=== PATIENT | female | born 1960 | race Caucasian/White ===

== ENCOUNTER 2017-02-28 17:11 | Emergency (ER) | payer OTHER ==
--- NOTE | ~2017-02-28 | CR141 ---
[facility] A Service of [facility] & [facility] RADIOLOGY TEXT RESULTS PATIENT: NAVEED ALCAZAR LOCATION: SED : 58 UNIT #: [id number] AGE: [address]: MARIA FERNANDA CORNEJO SEX: F ORDER DR: [id number] [address] [address] [id number] E MR#: [id number] Acc #: [id number] NAME: NAVEED ALCAZAR : 1960 SEX: F STUDY DATE/TIME: 02/28/2017 18:18 UNIT: SED ROOM: STUDY DESCRIPTION: CR Hand Min 3 Views Lt Attending Physician: Maria Fernanda Cornejo A.P.R.N. Ordering Physician: Maria Fernanda Cornejo A.P.R.N. Primary Care Physician: Primary Care Physician No MEDICAL IMAGING REPORT This report is preliminary unless electronic signature is present. EXAM Left hand series dated 02/28/2017. COMPARISON Left wrist series dated 02/28/2017. HISTORY Patient fell down stairs on . Left hand and left wrist pain and swelling. FINDINGS Three views of the left hand were obtained. There is an oblique nondisplaced fracture involving the proximal diaphysis of the proximal phalanx of the fifth digit. No dislocation. Minimal adjacent soft tissue swelling cannot be excluded. There is no radiopaque foreign body. Remaining digits do not demonstrate any acute injury. Dictated by... Brenton Vargas M.D. THIS IS AN ELECTRONICALLY VERIFIED REPORT Brenton Vargas M.D. at 03/01/2017 8:43 PM CPR/psc TD: 03/01/2017 04:19 JOB #: [id number] MEDICAL IMAGING REPORT Page 1 of 1
--- NOTE | ~2017-02-28 | CR281 ---
[facility] A Service of [facility] & [facility] RADIOLOGY TEXT RESULTS PATIENT: NAVEED ALCAZAR LOCATION: SED : 58 UNIT #: [id number] AGE: [address]: MARIA FERNANDA CORNEJO SEX: F ORDER DR: [id number] [address] [address] [id number] E MR#: [id number] Acc #: [id number] NAME: NAVEED ALCAZAR : 1960 SEX: F STUDY DATE/TIME: 02/28/2017 18:18 UNIT: SED ROOM: STUDY DESCRIPTION: CR Wrist Min 3 View Lt Attending Physician: Maria Fernanda Cornejo A.P.R.N. Ordering Physician: Maria Fernanda Cornejo A.P.R.N. Primary Care Physician: Primary Care Physician No MEDICAL IMAGING REPORT This report is preliminary unless electronic signature is present. EXAM Left wrist series dated 02/28/2017. COMPARISON Left hand series dated 02/28/2017. HISTORY Patient fell down the stairs on . Pain and swelling of the left hand and wrist since then. FINDINGS Three views of the left wrist were obtained. No acute displaced fracture or dislocation is seen. Distal radioulnar and radiocarpal joints are intact. Visualized carpals and metacarpals do not demonstrate any obvious abnormality. Refer to the left hand series. Dictated by... Brenton Vargas M.D. THIS IS AN ELECTRONICALLY VERIFIED REPORT Brenton Vargas M.D. at 03/01/2017 8:43 PM CPR/psc TD: 03/01/2017 04:16 JOB #: [id number] MEDICAL IMAGING REPORT Page 1 of 1
[~2017-02-28 17:11] MED LIST: AUGMENTIN875 MG PO; CIPRO PO; COMPAZINE10 MG PR; DICLOFENAC PO; FLEXERIL PO; FLEXERIL10 MG PO; FOLIC ACID PO; HYDROCODON-ACE1 EAC9 PO; KEFLEX PO; LACTULOSE PO; LACTULOSE10 G/15 M1 PO; LACTULOSE10 G/15 ML; LEVAQUIN PO; LIBRIUM25 MG PO; LOVENOX40 MG/0.4 INJ; MEDROL PO; MELOXICAM15 MG PO; MOBIC15 MG PO; NORCO 5/325 TAB1 TAB PO; ONE DAILY1 TA1 PO; PEGASYS PO; PEGASYS180 MCG/M1 SQ; PHENERGAN25 MG PO; ROBAXIN 750750 MG PO; THIAMINE PO; VICODIN 5/500 T1 TAB PO; ZANAFLEX2 M1 PO; ZANAFLEX6 MG
[2017-02-28] MEDS ORDERED: NO MEDICATIONS (17:16)
== END 2017-02-28 19:30 | disposition home or self-care (01) ==
LOC: SED 17:11
DX: S62.647A Nondisplaced fracture of proximal phalanx of left little finger, initial encounter for closed fracture (principal); S60.812A Abrasion of left wrist, initial encounter; W10.9XXA Fall (on) (from) unspecified stairs and steps, initial encounter; Y92.009 Unspecified place in unspecified non-institutional (private) residence as the place of occurrence of the external cause; Z88.8 Allergy status to other drugs, medicaments and biological substances; Z86.19 Personal history of other infectious and parasitic diseases; J45.909 Unspecified asthma, uncomplicated
CPT/HCPCS: 29130; 73110; 73130; 99283

== ENCOUNTER 2017-05-12 01:14 | Emergency (ER) | payer OTHER ==
[~2017-05-12] VITALS: Ht 170.2 cm; Wt 72.6 kg
[~2017-05-12 01:14] MED LIST changes: +NO MEDICATIONS
[2017-05-12] MEDS ORDERED: NO MEDICATIONS (01:30)
== END 2017-05-12 02:09 | disposition home or self-care (01) ==
LOC: SED 01:14
DX: M54.2 Cervicalgia (principal); G89.29 Other chronic pain; Z88.8 Allergy status to other drugs, medicaments and biological substances; Z98.890 Other specified postprocedural states
CPT/HCPCS: 99283

== ENCOUNTER 2017-05-26 15:11 | Inpatient (IN) | payer MEDICARE, OTHER ==
[~2017-05-26] VITALS: Ht 170.2 cm; Wt 75.4 kg
--- NOTE | ~2017-05-26 | US5 ---
[facility] A Service of [facility] & [facility] RADIOLOGY TEXT RESULTS PATIENT: NAVEED ALCAZAR LOCATION: C3A 314-01 : 58 UNIT #: [id number] AGE: [address]: Celeste Ellis MD SEX: F ORDER DR: [id number] [id number] [facility]. [place], [place] [address] [id number] I MR#: [id number] Acc #: [id number] NAME: NAVEED ALCAZAR : 1960 SEX: F STUDY DATE/TIME: 05/27/2017 18:05 UNIT: C3A PCU ROOM: 314 STUDY DESCRIPTION: US Abdominal Complete Attending Physician: Celeste Ellis M.D. Ordering Physician: Derrick Wynn M.D. Primary Care Physician: Primary Care Physician No MEDICAL IMAGING REPORT This report is preliminary unless electronic signature is present EXAM Complete abdominal ultrasound COMPARISON CT abdomen and pelvis, September 06, 2008. INDICATION 56-year-old female with diffuse abdominal pain for 3 months. History of hepatitis C virus and alcohol abuse. Generalized weakness. FINDINGS Left kidney is normal in length and cortical thickness. There is no left hydronephrosis. No focal left renal lesions. Spleen is normal in size. Visualized portions of the pancreas are within normal limits. IVC is patent at the level of the liver. Normal caliber of the abdominal aorta which is patent throughout. Normal common bile duct caliber at 4 mm. Right kidney is of normal size with normal cortical thickness. No right hydronephrosis or shadowing calculus. No focal right renal lesions are seen. Liver is small. There is a nodular contour of the liver consistent with cirrhosis. The urinary bladder is not seen. Color flow is noted within the portal hepatic veins. There is a small amount of perihepatic ascites. There is trace pericholecystic fluid with top normal wall thickness of the gallbladder at 3 mm. There is an echogenic focus along the wall of the gallbladder which may reflect adherent calculus or possibly a polyp measuring up to 7 mm. No focal hepatic lesions are seen. IMPRESSION 1. Suspected 7 mm polyp of the gallbladder. Consider followup gallbladder ultrasound in 6 months to ensure no interval growth. 2. Cirrhosis with trace perihepatic ascites. There is also a small amount of pericholecystic fluid favored to represent transmitted ascites. Gallbladder wall thickness may be normal and there is normal biliary caliber. Alternatively, there may be edema of the STS. [facility] A Service of [facility] & [facility] RADIOLOGY TEXT RESULTS PATIENT: NAVEED ALCAZAR LOCATION: C3A 314-01 : 58 UNIT #: [id number] AGE: [address]: Celeste Ellis MD SEX: F ORDER DR: gallbladder wall in lieu of pericholecystic fluid. Again this is a finding which can be seen in cirrhosis. If the patient is symptomatic, consider nuclear medicine hepatobiliary scan to exclude the possibility of cholecystitis. 3. No definite focal hepatic lesion is seen. Dictated by... Gigi Michelle M.D. THIS IS AN ELECTRONICALLY VERIFIED REPORT Gigi Michelle M.D. at 06/02/2017 9:36 AM Autumn TD: 05/28/2017 09:22 JOB #: [id number] MEDICAL IMAGING REPORT Page 1 of 1 COPY
--- NOTE | ~2017-05-26 | CO ---
Unit #: [id number] #: [id number] Patient: NAVEED FULTON [id number] [address] [place], [place] [address] [id number] I MR#: [id number] NAME: NAVEED FULTON ROOM: 314 Age: 56 Sex: F Admission Date: 05/26/2017 : 1960 Attending Physician: Celeste Ellis M.D. Primary Care Physician: Primary Care Physician No Consultation Date: 05/27/2017 CONSULTATION REPORT REASON FOR CONSULTATION Severe anemia. HISTORY OF PRESENTING ILLNESS Ms. Fulton is a 56-year-old female. She was admitted yesterday after found to be severely anemic by Dr. Rain during regular labs in office. She says she had a bout of hematemesis and black stools about 2 weeks ago which resolved on its own. It happened after she has been taking some ibuprofen for shoulder pain apparently. She has no history of GI bleeding in the past. She does have a history of heavy alcoholism, but says 5 years ago she quit altogether, also has hepatitis C which was treated of actively according to the patient. She denies any abdominal pain. She denies any fever or chills. She denies any diagnosis of liver cirrhosis in the past. PAST MEDICAL HISTORY Chronic neck and back pain, history of asthma, status post neck surgery, tonsillectomy, and right ankle surgery. SOCIAL HISTORY She stopped alcohol 5 years ago. Does not smoker. Denies any drug abuse. FAMILY HISTORY Negative. ALLERGIES Haloperidol. MEDICATIONS Current medications were reviewed. Has taken NSAIDs recently. REVIEW OF SYSTEMS A complete 10-point review of systems was done, which is unremarkable other than as mentioned above. PHYSICAL EXAMINATION VITAL SIGNS: Stable; temperature 97.9, pulse 96, respirations 18, blood pressure 118/63. HEENT: Pupils are equal and reactive. Sclerae are anicteric. Oral mucosa moist. NECK: No JVD. No lymphadenopathy. CHEST: Clear to auscultation bilaterally. CARDIOVASCULAR: Regular rate and rhythm. No murmurs. ABDOMEN: Soft, nontender, and nondistended. Unit #: [id number] #: [id number] Patient: NAVEED FULTON EXTREMITIES: Without clubbing, cyanosis, or edema. NEUROLOGICAL: Intact. SKIN: Warm and dry. DIAGNOSTIC STUDIES LABORATORY RESULTS: Hemoglobin on arrival was 4.7, MCV of 67. Ferritin of 6. B12 was 934. Hemoglobin now this morning is 6.6 and with an MCV of 66, and platelet count of 125. White count is normal at 5.3. ASSESSMENT AND PLAN The patient with severe microcytic anemia, Hemoccult-positive stool, history of alcoholism and hepatitis C in the past, most likely cirrhosis possible varices or gastropathy related bleeding. We will need an upper endoscopy for evaluation. If negative, colonoscopy to be followed for further evaluation of this severe microcytic anemia. I will give her transfusions to bring her hemoglobin up to above 7.5. We will continue with PPIs and also add octreotide for now. Further recommendations to follow after endoscopy evaluation as being carried out. Risks and benefits of the endoscopy were discussed, the patient is agreeable and wants to proceed. Thank you, Dr. Garza, for this interesting consult. We will follow along. Dictated by... Jimenez Ochoa/craig TD: 05/27/2017 10:59 JOB #: [id number] CONSULTATION REPORT Page 1 of 1 X Derrick Wynn MD X CONSULTATION REPORT
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
--- NOTE | ~2017-05-26 | OR ---
Unit #: [id number] #: [id number] Patient: NAVEED ALCAZAR [id number] [address] [address] [id number] I MR#: [id number] NAME: NAVEED ALCAZAR ROOM: [facility] Date of Procedure: 05/27/2017 Admission Date: 05/26/2017 Surgeon: Derrick Wynn M.D. : 1960 Attending Physician: Celeste Ellis M.D. Primary Care Physician: Primary Care Physician No OPERATIVE REPORT PROCEDURES PERFORMED Esophagogastroduodenoscopy with biopsy and esophagogastroduodenoscopy with variceal banding. INDICATIONS FOR PROCEDURE The patient presented with severe anemia, history of alcoholism, and hepatitis C, undergoing evaluation with upper endoscopy. MEDICATIONS Monitored anesthesia. POSTOPERATIVE FINDINGS 1. Grade 3 esophageal varices. Three bands were placed. 2. Multiple superficial ulceration in the gastric antral area along with chronic diffuse gastropathy, biopsies taken. 3. Mild duodenitis. PLAN Continue PPI therapy. Start on nadolol. Repeat upper endoscopy for banding in 3 months. Consider colonoscopy for further evaluation. DESCRIPTION OF PROCEDURE The patient was explained of the procedure, risks, and benefits along with risks and benefits of anesthesia. She was brought to the endoscopy room. Propofol anesthesia was given. Bite block was placed. The scope was passed down the mouth into the esophagus, stomach, duodenum, and distal duodenum. Findings as described. Biopsies taken. Banding was then carried out in the esophagus. Gently, the scope was pulled out. She tolerated it well. Dictated by... Jimenez Ochoa/craig TD: 05/27/2017 12:23 JOB #: [id number] Unit #: [id number] #: [id number] Patient: NAVEED ALCAZAR OPERATIVE REPORT Page 1 of 1 X Derrick Wynn MD X PROCEDURE OPERATIVE NOTE
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
--- NOTE | ~2017-05-26 | EKG ---
PATIENT: NAVEED ALCAZAR UNIT #: [id number] Ventricular Rate: 93 BPM Atrial Rate: 93 BPM P-R Interval: 160 ms QRS Duration: 76 ms Q-T Interval: 372 ms QTC Calculation(Bezet): 462 ms P Woodburn: 54 degrees Calculated R Woodburn: 4 degrees Calculated T Woodburn: 93 degrees Diagnosis Line: Normal sinus rhythm Diagnosis Line: Abnormal QRS-T angle, consider primary T wave Diagnosis Line: abnormality Diagnosis Line: Abnormal ECG Diagnosis Line: When compared with ECG of 13-FEB-2014 23:40, Diagnosis Line: Nonspecific T wave abnormality now evident in Diagnosis Line: Lateral leads Diagnosis Line: Confirmed by MARIA FERNANDA GURROLA MD ([id number]) on Diagnosis Line: 05/28/2017 11:31:45 AM INTERPRETING MD: IZABELA MCKEON
[2017-05-26 16:26] LABS: BASOPHIL% 0.9 % (0-2.5); EOSINOPHIL# 0.1 X10e3 (0-0.7); EOSINOPHIL% 1.5 % (0.0-7.0); HEMATOCRIT 15.8 % (35.0-45.0); LYMPHOCYTE# 1.1 X10e3 (1.0-3.5); LYMPHOCYTE% 20.7 % (17.0-45.0); MEAN CELL VOLUME 66.4 FL (83-96); MEAN CORPUSCULAR HEMOGLOBIN 19.7 PG (28-34); MEAN CORPUSCULAR HGB CONC 29.7 g/dL (30-36); MEAN PLATELET VOLUME 8.4 FL (6.5-11.5); MONOCYTE# 0.5 X10e3 (0-1.0); MONOCYTE% 9.3 % (3.0-12.0); NEUTROPHIL# 3.6 X10e3 (1.5-7.1); NEUTROPHIL% 67.6 % (40-75); PLATELET COUNT 125 X10e3 (140-420); RED BLOOD COUNT 2.38 X10e (3.90-5.30); RED CELL DISTRIBUTION WIDTH 19.7 % (11.0-15.5); WHITE BLOOD COUNT 5.3 X10e3 (4.0-10.5)
[2017-05-26 16:31] LABS: HEMOGLOBIN 4.7 gm/dL (12.0-16.0)
[2017-05-26 16:32] LABS: DIFF IND YES
[2017-05-26 16:36] LABS: PARTIAL THROMBOPLASTIN TIME 24.2 SECONDS (23.5-31.3)
[2017-05-26 16:43] LABS: BILIRUBIN, DIRECT 0.1 mg/dL (0.0-0.2); BILIRUBIN,INDIRECT 0.7 mg/dL (0.0-0.9); BILIRUBIN,TOTAL 0.8 mg/dL (0.2-2.0); CALCIUM SERUM 8.3 mg/dL (8.4-10.2); CREATININE SERUM 0.8 mg/dL (0.6-1.4); GLOM FILT RATE Estimated 81.9 mL/min (>60); POTASSIUM 3.8 mmol/L (3.5-5.1)
[2017-05-26 16:57] LABS: NUCLEATED RED BLOOD CELL 2 /100 (0)
[2017-05-26 16:58] LABS: ANISOCYTOSIS SL; HYPOCHROMIA MOD; MICROCYTOSIS MOD
[2017-05-26 17:01] LABS: PLATELET ESTIMATE DECREASED (NORMAL)
[2017-05-26] MEDS ORDERED: PATIENT'S PHARMACY (17:25)
[2017-05-26] MEDS ORDERED: KEFLEX500 M1 PO (17:26)
[2017-05-26] MEDS ORDERED: SANTYL30 GM TOP (17:26)
[2017-05-26] MEDS ORDERED: SILVADENE TOP (17:27)
[2017-05-26] MEDS ORDERED: ZANAFLEX PO (17:28)
[2017-05-26] MEDS ORDERED: ULTRAM PO (17:28)
[2017-05-26 19:04] LABS: IRON SERUM 5 ug/dL (28-170); TOTAL IRON BINDING CAPACITY 488 ug/dL (269-535); TRANSFERRIN 349 mg/dL (192-382); TRANSFERRIN SATURATION 1 % (20-50)
[2017-05-26 21:32] LABS: POC - CKMB <1.0 ng/mL (0.0-7.9); POC - TROPONIN <0.05 ng/mL (<=0.05)
[2017-05-26 21:41] LABS: %MB 4.1 % (0.0-4.0); MB 2.8 ng/ml
[2017-05-26 21:51] LABS: FOLATE (FOLIC ACID) 14.8 ng/mL (>5.8)
[2017-05-27 02:08] LABS: HEMATOCRIT 21.3 % (35.0-45.0)
[2017-05-27 02:10] LABS: HEMOGLOBIN 6.6 gm/dL (12.0-16.0)
[2017-05-27 02:45] LABS: %MB 3.8 % (0.0-4.0); MB 2.3 ng/ml
[2017-05-27 09:05] LABS: HEMATOCRIT 27.3 % (35.0-45.0); HEMOGLOBIN 8.5 gm/dL (12.0-16.0)
[2017-05-27 09:34] LABS: CK TOTAL 51 IU/L (26-140)
[2017-05-28 06:47] LABS: HEMATOCRIT 27.3 % (35.0-45.0); HEMOGLOBIN 8.6 gm/dL (12.0-16.0); MEAN CORPUSCULAR HEMOGLOBIN 22.7 PG (28-34); MEAN CORPUSCULAR HGB CONC 31.5 g/dL (30-36); MEAN PLATELET VOLUME 8.6 FL (6.5-11.5); RED BLOOD COUNT 3.79 X10e (3.90-5.30); RED CELL DISTRIBUTION WIDTH 21.9 % (11.0-15.5); WHITE BLOOD COUNT 5.7 X10e3 (4.0-10.5)
[2017-05-28 07:06] LABS: PROTHROMBIN TIME (PATIENT) 11.2 SECONDS (10.0-11.7)
[2017-05-28 07:24] LABS: ALBUMIN SERUM 2.7 g/dL (3.5-5.0); BILIRUBIN,TOTAL 0.5 mg/dL (0.2-2.0); BUN/CREATININE RATIO 11.42; CALCIUM SERUM 7.9 mg/dL (8.4-10.2); CREATININE SERUM 0.7 mg/dL (0.6-1.4); GLOM FILT RATE Estimated 96.2 mL/min (>60); PROTEIN TOTAL SERUM 5.8 g/dL (6.0-8.3)
[2017-05-28 14:08] LABS: IRON SERUM 11 ug/dL (28-170); TOTAL IRON BINDING CAPACITY 452 ug/dL (269-535); TRANSFERRIN 323 mg/dL (192-382); TRANSFERRIN SATURATION 2 % (20-50)
[2017-05-28] MEDS ORDERED: OXYCODONE HCL5 M1 PO (14:46)
[2017-05-28] MEDS ORDERED: PROTONIX PO (14:47)
[2017-05-28] MEDS ORDERED: CORGARD20 MG PO (14:47)
== END 2017-05-28 15:24 | disposition home or self-care (01) | DRG 377 ==
LOC: CED 15:11 → C3A PCU 18:15 → CEDOF 18:15 → CED 19:00 → C3A PCU 19:00 → CEDOF 19:00 → C3A PCU 05-27 08:27
PROVIDERS: Emergency Medicine; Family Medicine; Internal Medicine
PROC: 30233N1 Transfusion of Nonautologous Red Blood Cells into Peripheral Vein, Percutaneous Approach (ICD-10-PCS; 2017-05-26)
PROC: 0DB68ZX Excision of Stomach, Via Natural or Artificial Opening Endoscopic, Diagnostic (ICD-10-PCS; principal; 2017-05-27 11:00)
PROC: 06L34CZ Occlusion of Esophageal Vein with Extraluminal Device, Percutaneous Endoscopic Approach (ICD-10-PCS; 2017-05-27 11:00)
DX: K25.4 Chronic or unspecified gastric ulcer with hemorrhage (principal); I85.11 Secondary esophageal varices with bleeding; D69.6 Thrombocytopenia, unspecified; K76.6 Portal hypertension; F10.10 Alcohol abuse, uncomplicated; D50.9 Iron deficiency anemia, unspecified; R00.1 Bradycardia, unspecified; K70.30 Alcoholic cirrhosis of liver without ascites; D62 Acute posthemorrhagic anemia; G89.29 Other chronic pain; J45.909 Unspecified asthma, uncomplicated; Z86.19 Personal history of other infectious and parasitic diseases; M54.2 Cervicalgia; R01.1 Cardiac murmur, unspecified; K29.80 Duodenitis without bleeding; K31.89 Other diseases of stomach and duodenum
CPT/HCPCS: 36430; 76700; 80048; 80053; 80076; 82550; 82553; 82607; 82728; 82746; 83540; 83550; 84443; 84484; 85014; 85018; 85025; 85027; 85610; 85730; 86850; 86900; 86901; 86923; 88305; 88312; 93005; 93306; 94760; C9113; J2250; J2270; J2405; P9016